=== PATIENT | female | born 1930 | race Caucasian/White ===

== ENCOUNTER → 2018-04-06 | Emergency (ER) | payer MEDICARE, OTHER, MEDICAID ==
--- NOTE | 2018-04-06 09:55 | EDM.PDOC ---
ED HPI GENERAL MEDICAL PROBLEM - General Chief Complaint: General Stated Complaint: [facility] Time Seen by Provider: 04/06/18 09:35 Source of Information: Reports: EMS History Limitations: Reports: Altered Mental Status - History of Present Illness INITIAL COMMENTS - FREE TEXT/NARRATIVE: 87-year-old female with previous history of bowel obstructions, [facility] with a marked change in mental status, in and out of consciousness and alternating levels of hypoxia. She had a small amount of emesis and a distended abdomen. She was unresponsive to painful stimulus. She is DNR but she was sent to the emergency room for evaluation. She arrived very pale, unresponsive, smelled of fecal material and a very raspy respiration. She appears to have possibly redeveloped a bowel obstruction and has aspirated, this appears to be a terminal event. Onset: Unknown/Unsure Severity: Severe - Related Data Allergies Allergy/AdvReac Type Severity Reaction Status Date / Time Sulfa (Sulfonamide Allergy unknown Verified 04/06/18 10:06 Antibiotics) Home Meds: Home Meds Aspirin [Kalpesh Chewable Aspirin] 81 mg PO DAILY 12/30/13 [History] Levothyroxine [Synthroid] 0.05 mg PO DAILY 12/30/13 [History] Omeprazole 20 mg PO DAILY 12/30/13 [History] Valsartan [Diovan] 40 mg PO BID 12/30/13 [History] Acetaminophen [Arthritis Pain Relief] 1 tab PO QID 06/15/15 [History] Citalopram [Citalopram HBr] 10 mg PO BEDTIME 06/15/15 [History] Multivitamins/Iron/Folic Acid [Cerovite Advanced Formula] 1 tab PO DAILY [History] Bacitracin [Bacitracin Oint] 0 gm TOP BID tube 07/04/15 [Rx] Loperamide [Imodium] 2 mg PO Q4H PRN #30 cap 07/04/15 [Rx] Carbidopa/Levodopa [Sinemet 25-100 mg Tablet] 1 each PO QID 02/08/16 [History] Polyethylene Glycol 3350 [MiraLAX] 8.5 gm PO DAILY 02/08/16 [History] Potassium Chloride [Klor-Con M20] 20 meq PO DAILY 02/08/16 [History] Sennosides [Senna Laxative] 25 mg PO DAILY 04/18/16 [History] Cranberry Extract [Cranberry] 1 tab PO DAILY 10/15/16 [History] Polyethylene Glycol 3350 [Miralax] 8.5 gm PO DAILY PRN 10/15/16 [History] Acetaminophen [Acetaminophen Extra Strength] 1,000 mg PO TID #100 tablet [Rx] Diclofenac Sodium [Voltaren 1% Gel] 1 gm TOP BID 04/10/17 [History] Melatonin 3 mg PO BEDTIME 04/10/17 [History] Tretinoin 1 applic TOP BEDTIME 04/10/17 [History] Past Medical History HEENT History: Reports: Impaired Vision, Macular Degeneration Cardiovascular History: Reports: Heart Failure, Hypertension Gastrointestinal History: Reports: Bowel Obstruction, Chronic Constipation, GERD , Hiatal Hernia Other Gastrointestinal History: large hernia Genitourinary History: Reports: Urinary Incontinence 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 KYPHOSIS. spinal stenosis lumbar Neurological History: Reports: CVA, Parkinson's, Other (See Below) Other Neuro History: DEMENTIA Psychiatric History: Reports: Anxiety, Dementia, Depression Endocrine/Metabolic History: Reports: Hypothyroidism Hematologic History: Reports: Anemia - Past Surgical History GI Surgical History: Reports: Small Bowel Social & Family History - Family History Family Medical History: Unobtainable (pt not able to answer questions 2/2 somnolence) - Caffeine Use Caffeine Use: Reports: None ED ROS GENERAL - Review of Systems Review Of Systems: See Below Constitutional: Reports: Weakness Respiratory: Reports: Shortness of Breath GI/Abdominal: Reports: Vomiting Skin: Reports: Pallor ED EXAM, GENERAL - Physical Exam Exam: See Below Exam Limited By: Altered Mental Status General Appearance: Obtunded Respiratory/Chest: Respiratory Distress, Rales (Diffuse bilateral rales and rhonchi are present), Rhonchi Cardiovascular: Bradycardia, Irregularly Irregular GI/Abdominal: Other (Hypoactive bowel sounds, patient is not responding to palpation tenderness) Neurological: Unresponsive Skin Exam: Pallor (Extremely pallor skin, cool) Course - Vital Signs Last Recorded V/S: Last Vital Signs Temp 94.5 F L 04/06/18 10:15 Pulse 54 L 05/27/18 10:15 Resp 16 04/06/18 10:15 BP 49/33 L 04/06/18 10:15 Pulse Ox 86 L 04/06/18 10:15 - Re-Assessments/Exams Free Text/Narrative Re-Assessment/Exam: 04/06/18 09:55 O2 was applied to the patient as her O2 sats were only in the upper 70s to low 80s. Because of the very serious presentation of the patient, aggressive measures were initially deferred and she'll be observed for the next 30-60 minutes. 04/06/18 09:59 Within 15-20 minutes the patient went severely bradycardic and . No further treatment was given. 04/06/18 16:23 Time of was 10 AM Departure - Departure Time of Disposition: 10:00 Disposition: 20 Preliminary Cause of *Q: Other_Special Instruction (bowel obstruction, aspiration) Clinical Impression: Bowel obstruction Qualifiers: Intestinal obstruction type: unspecified Intestinal obstruction extent: complete Qualified Code(s): K56.601 - Complete intestinal obstruction, unspecified as to cause Aspiration of vomitus Qualifiers: Encounter type: initial encounter Qualified Code(s): T17.910A - Gastric contents in respiratory tract, part unspecified causing asphyxiation, initial encounter - Discharge Information Referrals: Richmond Carvajal MD [Primary Care Provider] - Forms: ED Department Discharge Care Plan Goals: Patient shortly after arriving to the emergency room.
[2018-04-06 10:17] VITALS: BP 49/33
== END | disposition expired ==
LOC: JP.ED 09:21
DX: K56.601 Complete intestinal obstruction, unspecified as to cause (principal); T17.910A Gastric contents in respiratory tract, part unspecified causing asphyxiation, initial encounter; Z66 Do not resuscitate; R41.82 Altered mental status, unspecified; I50.9 Heart failure, unspecified; I10 Essential (primary) hypertension; K59.09 Other constipation; K44.9 Diaphragmatic hernia without obstruction or gangrene; E03.9 Hypothyroidism, unspecified; G20 Parkinson's disease; F02.80 Dementia in other diseases classified elsewhere, unspecified severity, without behavioral disturbance, psychotic disturbance, mood disturbance, and anxiety; F41.8 Other specified anxiety disorders; Z79.82 Long term (current) use of aspirin; Z79.899 Other long term (current) drug therapy; Z88.2 Allergy status to sulfonamides
CPT/HCPCS: 99285